=== PATIENT | male | born 1995 | race Caucasian/White ===

== ENCOUNTER 2021-09-17 10:15 | Emergency (ER) | payer BC, SELFPAY ==
[2021-09-17 10:25] VITALS: BP 133/91; PULSE 96; RESP 18; TEMP 36.8; O2SAT 97; BMI 19.8
--- NOTE | 2021-09-17 10:45 | ED_ITS ---
HPI - General Adult General: Chief complaint: General Medical Stated complaint: NOSE BLEED Time Seen by Provider: 09/17/21 10:31 History of Present Illness: Nosebleed that has stopped. Onset (ago): hour(s) Associated symptoms: Deny chest pain, dyspnea, headache(s), nausea, rash or vomiting Review of Systems General: Reports: Other (Did have Covid recently) Const: Denies: fever(s), chills or body aches Eyes: Denies: change in vision or blurry vision ENMT: Reports: throat pain, nasal congestion (Originally had congestion) and epistaxis (Started this morning. Did not stop for about an hour. Sent from [facility] ) Card: Denies: chest pain or dyspnea on exertion Resp: Denies: dyspnea, productive cough or non-productive cough GI: Denies: abdominal pain, nausea or vomiting : Denies: difficulty urinating Musc: Denies: extremity pain Skin/Breast: Denies: rash Neuro: Denies: headache(s) Psych: Denies: anxiety or depression Navjot/Lymph: Denies: easy bruising Physical Exam Const: COMMON NORMALS: no acute distress, average body habitus and patient oriented x3 HENMT: COMMON NORMALS: normocephalic HEAD & SCALP: normal to inspection and normocephalic FACE & SINUS: normal facial exam and sinuses nontender NOSE: Other nasal findings present (Nose is not actively bleeding. No blood down back throat) Eye: COMMON NORMALS: conjunctivae normal GENERAL EYE: appearance normal, both eyes and all related structures CONJUNCTIVA: Yes conjunctivae normal Neck/C-Spine: COMMON NORMALS: no JVD Chest: COMMONS NORMALS: normal inspection of the chest Resp: COMMON NORMALS: normal respiratory effort and clear to auscultation bilaterally AUSCULTATION: clear to auscultation bilaterally Cardio: COMMON NORMALS: no JVD, regular rate and regular rhythm RATE: regular rate RHYTHM: regular rhythm GI: COMMON NORMALS: Normal to inspection, nondistended, normoactive bowel sounds present Extremity: COMMON NORMALS: normal to inspection and full ROM Neuro: COMMON NORMALS: patient oriented x3 Course Vital Signs: Vital signs: Vital Signs Temperature 98.3 F 09/17/21 10:55 Pulse Rate 96 09/17/21 10:55 Respiratory Rate 18 09/17/21 10:55 Blood Pressure 133/91 09/17/21 10:55 Pulse Oximetry 97 09/17/21 10:55 MDM - General Adult Medical Decision Making Nosebleed, dry nose Discharge Plan Discharge Patient Disposition: Home Clinical Impression: Epistaxis Condition: Stable Prescriptions: [place] Nasal 0.65 % aerosol,spray 2 spray intranasal Q2H PRN (Reason: dry nasal passages) Qty: 60 0RF Afrin (oxymetazoline) 0.05 % mist 3 spray intranasal BID PRN (Reason: nasal congestion) 5 Days Qty: 15 0RF Discharge Orders: Discharge ED (Routine); Ordered 09/17/21 Ordered By: Ron Luz Discharge Diet: Usual diet Discharge Activity: Resume usual activity Patient Instructions: Nosebleed (ED) Activity Restrictions/Additional Instructions: Use medicines as directed. Both medicines can be bought [id number]. You can also use petroleum jelly or Vaseline inside your nose to help keep it moist. Do not blow your nose hard for next 2 to 3 days. Try not to sneeze. Follow-up your family medical provider as directed. Coding Level of Care Code ED [employer] Super[employer] for [employer] Fwd Exam Comprehensive
[2021-09-17 10:55] VITALS: BP 133/91; PULSE 96; RESP 18; TEMP 36.8; O2SAT 97
== END 2021-09-17 10:58 | disposition home or self-care (01) ==
PROVIDERS: Emergency Provider Nurse Practitioner Family
DX: R04.0 Epistaxis (principal)
CPT/HCPCS: 99281